=== PATIENT | male | born 1945 | race Caucasian/White ===

== ENCOUNTER 2016-09-03 09:17 | Outpatient (CLI) | payer OTHER ==
[2015-11-03 14:12] VITALS: BP 153/74
[2016-09-03 09:55] LABS: eGFR (African) > 60; eGFR (Non-African) > 60
== END 2016-09-03 09:18 ==
LOC: LAB 09:17
PROVIDERS: ATTEND Family Medicine
DX: E11.9 Type 2 diabetes mellitus without complications (principal); E03.9 Hypothyroidism, unspecified; Z12.5 Encounter for screening for malignant neoplasm of prostate
CPT/HCPCS: 36415; 80053; 80061; 82043; 83036; 84153; 84443

== ENCOUNTER 2017-03-08 09:27 | Outpatient (CLI) | payer OTHER ==
[2015-11-03 14:12] VITALS: BP 153/74
[2017-03-08 10:05] LABS: eGFR (African) > 60; eGFR (Non-African) > 60
== END 2017-03-08 09:40 ==
LOC: LAB 09:27
PROVIDERS: ATTEND Family Medicine
DX: E11.9 Type 2 diabetes mellitus without complications (principal); I10 Essential (primary) hypertension
CPT/HCPCS: 36415; 80053; 83036

== ENCOUNTER 2017-07-05 09:21 | Outpatient (CLI) | payer OTHER ==
[2015-11-03 14:12] VITALS: BP 153/74
[2017-07-05 10:19] LABS: eGFR (African) > 60; eGFR (Non-African) > 60
== END 2017-07-05 09:22 ==
LOC: LAB 09:21
PROVIDERS: ATTEND Family Medicine
DX: E11.9 Type 2 diabetes mellitus without complications (principal)
CPT/HCPCS: 36415; 80053; 80061; 82043; 83036

== ENCOUNTER 2017-12-06 09:38 | Outpatient (CLI) | payer OTHER ==
[2015-11-03 14:12] VITALS: BP 153/74
[2017-12-06 10:34] LABS: eGFR (Non-African) > 60
== END 2017-12-06 09:40 ==
LOC: LAB 09:38
PROVIDERS: ATTEND Family Medicine
DX: E11.9 Type 2 diabetes mellitus without complications (principal)
CPT/HCPCS: 36415; 80053; 83036

== ENCOUNTER 2017-12-22 08:33 | Outpatient (CLI) | payer OTHER ==
[2015-11-03 14:12] VITALS: BP 153/74
[2017-12-22 16:11] LABS: BASO % 0.7 % (0.0-1.5); EOS % 2.1 % (0.0-6.8); LYMPH ABS # 2.07 thou/uL (0.60-4.00); MCH. 32.3 pg (28.0-34.0); MONOCYTE % 7.4 % (0.0-11.0); MONOCYTE ABS # 0.57 thou/uL (0.00-0.90); PLATELET COUNT 304 thou/uL (130-400)
== END 2017-12-22 08:34 ==
LOC: LAB 08:33
PROVIDERS: ATTEND Family Medicine
DX: E11.9 Type 2 diabetes mellitus without complications (principal); I10 Essential (primary) hypertension
CPT/HCPCS: 36415; 80061; 85025

== ENCOUNTER 2018-06-06 08:55 | Outpatient (CLI) | payer OTHER ==
[2015-11-03 14:12] VITALS: BP 153/74
[2018-06-06 09:59] LABS: eGFR (Non-African) > 60
== END 2018-06-06 08:56 ==
LOC: LAB 08:55
PROVIDERS: ATTEND Family Medicine
DX: E11.9 Type 2 diabetes mellitus without complications (principal); I10 Essential (primary) hypertension
CPT/HCPCS: 36415; 80053; 80061; 82043; 83036

== ENCOUNTER 2018-12-05 08:56 | Outpatient (CLI) | payer OTHER ==
[2015-11-03 14:12] VITALS: BP 153/74
[2018-12-05 09:36] LABS: eGFR (Non-African) > 60
[2018-12-05 09:37] LABS: HDL 44 mg/dL (>40)
== END 2018-12-05 08:58 ==
LOC: LAB 08:56
PROVIDERS: ATTEND Family Medicine
DX: E11.9 Type 2 diabetes mellitus without complications (principal); I10 Essential (primary) hypertension
CPT/HCPCS: 36415; 80053; 80061; 83036